=== PATIENT | male | born 1975 | race Caucasian/White ===

== ENCOUNTER 2017-05-26 21:42 | Emergency (ER) | payer SELFPAY ==
[~2017-05-26] VITALS: Ht 175.3 cm; Wt 64.0 kg
[~2017-05-26 21:42] MED LIST: TYLE3 PO; Z.0.NO CURRENT MEDS
[2017-05-26 21:45] VITALS: BP 118/62; PULSE 95; RESP 18; TEMP 98.6; O2SAT 95
[2017-05-27] MEDS ORDERED: ceFAZolin 2 GM PREMIX 50 ML IV ONE (00:45)
[2017-05-27] MEDS ORDERED: CLINDAMYCIN INJ 900 MG in SODIUM CHLORIDE 0.9% INJ 100 ML IV ONE (00:45)
[2017-05-27] MEDS ORDERED: SODIUM CHLOR 0.9% 1000 ML INJ 1,000 ML IV ONE (00:45)
[2017-05-27 01:10] VITALS: BP 129/68; PULSE 69; RESP 18; O2SAT 98
[2017-05-27] MEDS ORDERED: CLINDAMYCIN 900 MG/DEX PREMIX 50 ML IV ONE (01:15)
--- NOTE | 2017-05-27 01:42 | PD ---
HPI Chief Complaint: Skin Problem Time Seen by Provider: 00:42 Travel History International Travel<30 days: No Contact w/Intl Traveler<30days: No Traveled to known affect area: No History of Present Illness HPI The patient is 41 year old male who presents to the [facility] emergency department with a history of noticing a painful bump on the left leg 2 days ago. He lanced it himself 2 days ago. He was not able to get out any drainage. He had a subjective fever with fatigue 2 days ago. He had nausea and vomiting 2- 3 days ago. He vomited 2-3 x. He also had diarrhea 2-3 x on the same day. He has a history of IV drug and relapsed 2 weeks ago. He injects ice, heroin, and opiate pills. He denies injecting his legs. On review of systems otherwise, he denies having any recent cough, congestion, neck pain, chest pain, shortness of breath, abdominal pain, urinary symptoms, or neurologic symptoms. [facility] Past Medical History Narrative Medical The patient's past medical history is significant for Epilepsy, ADHD, hepatitis C, history of IV drug use. ADD: Yes ADHD: Yes Bipolar Disorder: Yes Diminished Hearing: No Hepatitis: Yes (HEP C) Seizures: Yes (HEAD TRAUMA) Past Surgical History Narrative Surgical The patient's past surgical history is significant for hernia, tonsillectomy, appendectomy Appendectomy: Yes Genitourinary Surgery: Yes (TESTICULAR HERNIA) Tonsillectomy: Yes Social History Alcohol Use: No Tobacco Use: Yes (1.5 PPD X 12 YEARS) Substance Use: Yes (PT STATES FORMER IV DRUG USER,) Allergies-Medications (Allergen,Severity, Reaction): Coded Allergies: iodine (Unverified Allergy, Severe, Anaphylaxis, 05/26/17) penicillin G (Unverified Allergy, Severe, HIVES, 05/26/17) potassium iodide (Unverified Allergy, Severe, Anaphylaxis, 05/26/17) povidone-iodine (Unverified Allergy, Severe, Anaphylaxis, 05/26/17) shellfish derived (Unverified Allergy, Severe, Anaphylaxis, 05/26/17) sodium iodide (Unverified Allergy, Severe, Anaphylaxis, 05/26/17) sodium iodide (Unverified Allergy, Severe, Anaphylaxis, 05/26/17) Reported Meds & Prescriptions Reported Meds & Active Scripts Active Doxycycline Hyclate 100 Mg Cap 100 Mg PO BID Bactrim DS (Sulfamethoxazole-Trimethoprim) 800-160 Mg Tab 1 Tab PO BID Review of Systems Except as stated in HPI: all other systems reviewed are Neg General / Constitutional: Positive: Fever Eyes: No: Visual changes HENT: No: Headaches, Rhinorrhea, Congestion Cardiovascular: No: Chest Pain or Discomfort Respiratory: No: Shortness of Breath Gastrointestinal: Positive: Nausea, Vomiting, Diarrhea, No: Abdominal Pain Genitourinary: No: Dysuria Musculoskeletal: Positive: Myalgias, Pain Skin: No Rash Neurologic: No: Weakness Psychiatric: No: Depression Endocrine: No: Polydipsia Hematologic/Lymphatic: No: Easy Bruising Physical Exam Narrative General: The patient is a well-developed well-nourished male in no acute distress. Head and Neck exam: Head is normocephalic atraumatic. Eyes: EOMI, pupils are equal round and reactive to light. Nose: Midline septum with pink mucous membranes Mouth: Dentition unremarkable. Moist mucus membranes. Posterior oropharynx is not erythematous. No tonsillar hypertrophy. Uvula midline. Airway patent. Neck: No palpable lymphadenopathy. No nuchal rigidity. No thyromegaly. Cardiovascular: Regular rate and rhythm without murmurs, gallops, or rubs. No pulse deficit to the extremities. Lungs: Clear to auscultation bilaterally. No wheezes, rhonchi, or rales. Abdomen: Soft, without tenderness to palpation in all 4 quadrants of the abdomen. No guarding, rebound, or rigidity. Normal bowel sounds are audible. No tenderness on palpation of McBurney's point. Extremities: No clubbing, cyanosis, or edema. 2+ pulses in all 4 extremities. On examination of the area of interest, the patient's left lateral leg the patient is noted to have an approximately 3 cm area of swelling with central fluctuance and crusting over the top. There is no active drainage. There is an area of erythema, edema, warmth, and tenderness on palpation surrounding this abscess. The patient has no edema down into his foot. The patient has intact sensation over all digits. Back: No spinous process tenderness to palpation. No costovertebral angle tenderness to palpation. Neurologic Exam: Grossly nonfocal. Skin Exam: No rash noted. Intact skin that is warm and dry. Data Data Last Documented VS Vital Signs Date Time Temp Pulse Resp B/P (MAP) Pulse Ox O2 Delivery O2 Flow Rate FiO2 05/27/17 04:56 05/27/17 01:10 69 18 98 Room Air 05/26/17 21:45 98.6 Orders Orders Complete Blood Count With Diff (05/27/17 00:42) Comprehensive Metabolic Panel (05/27/17 00:42) Blood Culture (05/27/17 00:42) C-Reactive Protein (Crp) (05/27/17 00:42) Lipase (05/27/17 00:42) Iv Access Insert/Monitor (05/27/17 00:42) Ecg Monitoring (05/27/17 00:42) Oximetry (05/27/17 00:42) Lactic Acid Sepsis Protocol (05/27/17 00:42) Sodium Chlor 0.9% 1000 Ml Inj (Ns 1000 M (05/27/17 00:45) Cefazolin 2 Gm Premix (Ancef 2 Gm Premix (05/27/17 00:45) Clindamycin 900 Mg/Dex Premix (Cleocin 9 (05/27/17 01:15) Ketorolac Inj (Toradol Inj) (05/27/17 04:30) Lidocaine 1% Inj (Xylocaine 1% Inj) (05/27/17 04:45) Ed Discharge Order (05/27/17 04:47) Labs Laboratory Tests Test 05/27/17 01:18 05/27/17 01:20 White Blood Count 10.0 TH/MM3 Red Blood Count 4.53 MIL/MM3 Hemoglobin 14.4 GM/DL Hematocrit 40.5 % Mean Corpuscular Volume 89.3 FL Mean Corpuscular Hemoglobin 31.7 PG Mean Corpuscular Hemoglobin Concent 35.5 % Red Cell Distribution Width 13.4 % Platelet Count 272 TH/MM3 Mean Platelet Volume 7.5 FL Neutrophils (%) (Auto) 55.4 % Lymphocytes (%) (Auto) 30.2 % Monocytes (%) (Auto) 12.7 % Eosinophils (%) (Auto) 0.7 % Basophils (%) (Auto) 1.0 % Neutrophils # (Auto) 5.6 TH/MM3 Lymphocytes # (Auto) 3.0 TH/MM3 Monocytes # (Auto) 1.3 TH/MM3 Eosinophils # (Auto) 0.1 TH/MM3 Basophils # (Auto) 0.1 TH/MM3 CBC Comment DIFF FINAL Differential Comment Blood Urea Nitrogen 12 MG/DL Creatinine 1.06 MG/DL Random Glucose 93 MG/DL Total Protein 7.2 GM/DL Albumin 3.2 GM/DL Calcium Level 8.0 MG/DL Alkaline Phosphatase 69 U/L Aspartate Amino Transf (AST/SGOT) 39 U/L Alanine Aminotransferase (ALT/SGPT) 106 U/L Total Bilirubin 0.2 MG/DL Sodium Level 140 MEQ/L Potassium Level 3.5 MEQ/L Chloride Level 104 MEQ/L Carbon Dioxide Level 30.8 MEQ/L Anion Gap 5 MEQ/L Estimat Glomerular Filtration Rate 78 ML/MIN C-Reactive Protein 2.17 MG/DL Lipase 172 U/L Lactic Acid Level 0.7 mmol/L [facility] Medical Decision Making Medical Screen Exam Complete: Yes Emergency Medical Condition: Yes Medical Record Reviewed: Yes Differential Diagnosis Cellulitis, versus abscess, versus cellulitis with abscess, versus sepsis Narrative Course During the course of the patients emergency department visit, the patients history, examination, and differential diagnosis were reviewed with the patient. The patient was placed on a cardiac exercise specialist with oximetry and frequent blood pressure monitoring. The patient had IV access obtained and blood work sent for analysis. The patient asserts criteria negative. Sepsis criteria negative. The patient was initially provided clindamycin 900 mg IV, Ancef 2 g IV, Toradol 15 mg IV, normal saline IV fluids. The patients laboratory studies were reviewed and remarkable for CBC shows a white count of 10, hemoglobin 14.4, platelets 272 with 12.7 monocytes, CMP is remarkable for a GFR of 78, calcium 8.0, AST 39, ALT 106 in a patient with a known history of hepatitis C, C-reactive protein 2.17, lipase 172, lactic acid 0.7. The patient was offered admission for continued IV antibiotic, however he reports that he has to go to court on Friday morning. Instead the patient will be discharged home on antibiotic after incision and drainage is done by the physician social worker assistant, Edison. The patient will be discharged home with a prescription for doxycycline and Bactrim. The patient is resting comfortably and feels better, is alert and in no distress. The patients results and examination findings were discussed with the patient. The repeat examination is unremarkable and benign. The history, exam, diagnostic testing, and current condition do not suggest any significant pathology to warrant further testing, continued ED treatment, admission, or surgical evaluation at this point. The vital signs have been stable. The patient does not have uncontrollable pain, intractable vomiting, or other significant symptoms. The patient's condition is stable and appropriate for discharge. The patient will pursue further outpatient evaluation with a primary care physician or other designated or consulting physician as indicated in the discharge instructions. The patient expressed understanding and was agreeable with this plan. Sepsis Criteria SIRS Criteria (2 or more): Heart rate over 90 Diagnosis Primary Impression: Cellulitis and abscess of leg Referrals: [facility] 1 day Patient Instructions: Abscess (ED), Cellulitis (ED), General Instructions Additional Instructions: Return to the ER or the [place] [facility] for a wound recheck in 24 hours. Med/Other Pt SpecificInfo: Prescription(s) given Scripts Doxycycline Hyclate (Doxycycline Hyclate) 100 Mg Cap 100 MG PO BID for Infection, #20 CAP 0 Refills Prov: Anastasiya Ferrera MD 05/27/17 Sulfamethoxazole-Trimethoprim (Bactrim DS) 800-160 Mg Tab 1 TAB PO BID for Infection, #20 TAB 0 Refills Prov: Anastasiya Ferrera MD 05/27/17 Disposition: 01 DISCHARGE HOME Condition: Stable Anastasiya Ferrera MD May 27, 2017 01:42
[2017-05-27 01:48] LABS: AUTOMATED NEUTROPHIL # 5.6 TH/MM3 (1.8-7.7); BASOPHIL # 0.1 TH/MM3 (0-0.2); EOSINOPHIL # 0.1 TH/MM3 (0-0.4); EOSINOPHIL % 0.7 % (0.0-4.0); HEMATOCRIT 40.5 % (39.0-51.0); HEMOGLOBIN 14.4 GM/DL (13.0-17.0); LYMPH % 30.2 % (9.0-44.0); MEAN CELL VOLUME 89.3 FL (80.0-100.0); MEAN CORPUSCULAR HEMOGLOBIN 31.7 PG (27.0-34.0); MEAN CORPUSCULAR HGB CONC 35.5 % (32.0-36.0); MEAN PLATELET VOLUME 7.5 FL (7.0-11.0); MONO % 12.7 % (0.0-8.0); MONOCYTE # 1.3 TH/MM3 (0-0.9); NEUT % 55.4 % (16.0-70.0); PLATELET COUNT 272 TH/MM3 (150-450); RED BLOOD COUNT 4.53 MIL/MM3 (4.50-5.90); RED CELL DISTRIBUTION WIDTH 13.4 % (11.6-17.2)
[2017-05-27 02:04] LABS: ALBUMIN 3.2 GM/DL (3.4-5.0); ALT (GPT) 106 U/L (12-78); AST (GOT) 39 U/L (15-37); BICARBONATE 30.8 MEQ/L (21.0-32.0); BLOOD UREA NITROGEN 12 MG/DL (7-18); C-REACTIVE PROTEIN 2.17 MG/DL (0.00-0.30); CHLORIDE 104 MEQ/L (98-107); CREATININE 1.06 MG/DL (0.60-1.30); GLOMERULAR FILTRATION RATE 78 ML/MIN (>89); GLUCOSE,RANDOM 93 MG/DL (74-106); LIPASE 172 U/L (73-393); SODIUM (NA) 140 MEQ/L (136-145)
[2017-05-27 02:07] LABS: ALKALINE PHOSPHATASE 69 U/L (45-117); TOTAL BILIRUBIN ADULT 0.2 MG/DL (0.2-1.0); TOTAL PROTEIN 7.2 GM/DL (6.4-8.2)
[2017-05-27] MEDS ORDERED: BACT800T5 PO (04:12)
[2017-05-27] MEDS ORDERED: DOXY100C PO (04:12)
[2017-05-27] MEDS ORDERED: KETOROLAC TROMETHAMINE 30 MG/ML (IVP) VIAL IV PUSH ONE (04:30)
[2017-05-27] MEDS ORDERED: LIDOCAINE HCL 1% 30 ML VIAL INFIL ONE (04:45)
--- NOTE | 2017-05-27 04:49 | PD ---
Physical Exam Date Seen by Provider: May 27, 2017 Time Seen by Provider: 04:48 Narrative Skin: Patient has a 3 x 3 cm abscess to the lateral left mid calf. He has a 2 cm surrounding area of erythema and induration. Positive fluctuance and pointing. Data Data Last Documented VS Vital Signs Date Time Temp Pulse Resp B/P (MAP) Pulse Ox O2 Delivery O2 Flow Rate FiO2 05/27/17 01:10 69 18 129/68 (88) 98 Room Air 05/26/17 21:45 98.6 Orders Orders Complete Blood Count With Diff (05/27/17 00:42) Comprehensive Metabolic Panel (05/27/17 00:42) Blood Culture (05/27/17 00:42) C-Reactive Protein (Crp) (05/27/17 00:42) Lipase (05/27/17 00:42) Urinalysis - C+S If Indicated (05/27/17 00:42) Iv Access Insert/Monitor (05/27/17 00:42) Ecg Monitoring (05/27/17 00:42) Oximetry (05/27/17 00:42) Lactic Acid Sepsis Protocol (05/27/17 00:42) Sodium Chlor 0.9% 1000 Ml Inj (Ns 1000 M (05/27/17 00:45) Cefazolin 2 Gm Premix (Ancef 2 Gm Premix (05/27/17 00:45) Clindamycin 900 Mg/Dex Premix (Cleocin 9 (05/27/17 01:15) Ketorolac Inj (Toradol Inj) (05/27/17 04:30) Lidocaine 1% Inj (Xylocaine 1% Inj) (05/27/17 04:45) Ed Discharge Order (05/27/17 04:47) Labs Laboratory Tests Test 05/27/17 01:18 05/27/17 01:20 White Blood Count 10.0 TH/MM3 Red Blood Count 4.53 MIL/MM3 Hemoglobin 14.4 GM/DL Hematocrit 40.5 % Mean Corpuscular Volume 89.3 FL Mean Corpuscular Hemoglobin 31.7 PG Mean Corpuscular Hemoglobin Concent 35.5 % Red Cell Distribution Width 13.4 % Platelet Count 272 TH/MM3 Mean Platelet Volume 7.5 FL Neutrophils (%) (Auto) 55.4 % Lymphocytes (%) (Auto) 30.2 % Monocytes (%) (Auto) 12.7 % Eosinophils (%) (Auto) 0.7 % Basophils (%) (Auto) 1.0 % Neutrophils # (Auto) 5.6 TH/MM3 Lymphocytes # (Auto) 3.0 TH/MM3 Monocytes # (Auto) 1.3 TH/MM3 Eosinophils # (Auto) 0.1 TH/MM3 Basophils # (Auto) 0.1 TH/MM3 CBC Comment DIFF FINAL Differential Comment Blood Urea Nitrogen 12 MG/DL Creatinine 1.06 MG/DL Random Glucose 93 MG/DL Total Protein 7.2 GM/DL Albumin 3.2 GM/DL Calcium Level 8.0 MG/DL Alkaline Phosphatase 69 U/L Aspartate Amino Transf (AST/SGOT) 39 U/L Alanine Aminotransferase (ALT/SGPT) 106 U/L Total Bilirubin 0.2 MG/DL Sodium Level 140 MEQ/L Potassium Level 3.5 MEQ/L Chloride Level 104 MEQ/L Carbon Dioxide Level 30.8 MEQ/L Anion Gap 5 MEQ/L Estimat Glomerular Filtration Rate 78 ML/MIN C-Reactive Protein 2.17 MG/DL Lipase 172 U/L Lactic Acid Level 0.7 mmol/L MDM Medical Record Reviewed: Yes Supervised Visit with DEBI: Yes Differential Diagnosis MDM: High Differential diagnoses: Abscess, folliculitis, cellulitis, lymphangitis, abrasion, contact dermatitis Narrative Course An incision and drainage has been performed Procedures Procedure Narrative I&D abscess: After the risks and benefits were discussed the following procedure was performed. The skin is prepped and draped in the usual sterile fashion using Betadine. The abscess is anesthetized with 1% lidocaine. After adequate anesthesia, an 11 blade scalpel is used to make a 3 centimeter central incision. Perulant material is expressed. Loculations are broken up using curved Anisha forceps. The wound is cleansed deeply using dilute Betadine and peroxide on Q-tips. The wound is left open. A wet-to-dry dressing is applied. The patient tolerated the procedure well. There was no complications. Follow-up instructions were given to the patient. Diagnosis Primary Impression: Cellulitis and abscess of leg Referrals: [facility] 1 day Patient Instructions: General Instructions, Cellulitis (ED), Abscess (ED) Additional Instruction: Return to the ER or the [facility] for a wound recheck in 24 hours. Med/Other Pt SpecificInfo: Prescription(s) given Scripts Doxycycline Hyclate (Doxycycline Hyclate) 100 Mg Cap 100 MG PO BID for Infection, #20 CAP 0 Refills Prov: Anastasiya Ferrera MD 05/27/17 Sulfamethoxazole-Trimethoprim (Bactrim DS) 800-160 Mg Tab 1 TAB PO BID for Infection, #20 TAB 0 Refills Prov: Anastasiya Ferrera MD 05/27/17 Disposition: 01 DISCHARGE HOME Condition: Stable Edison Bradley May 27, 2017 04:49
== END 2017-05-27 05:13 | disposition home or self-care (01) ==
LOC: NEPE 21:42
DX: L03.116 Cellulitis of left lower limb (principal); L02.416 Cutaneous abscess of left lower limb; B19.20 Unspecified viral hepatitis C without hepatic coma; G40.909 Epilepsy, unspecified, not intractable, without status epilepticus; F90.9 Attention-deficit hyperactivity disorder, unspecified type; F31.9 Bipolar disorder, unspecified; F17.210 Nicotine dependence, cigarettes, uncomplicated; Z88.0 Allergy status to penicillin; Z88.8 Allergy status to other drugs, medicaments and biological substances
CPT/HCPCS: 10060; 80053; 83605; 83690; 85025; 86140; 87040; 96365; 96366; 96368; 96375; 99284; J0690; J1885; J7030